=== PATIENT | male | born 1975 | race Caucasian/White ===

== ENCOUNTER 2024-08-05 14:48 | Outpatient (CLI) | payer OTHER, SELFPAY ==
--- NOTE | ~2024-08-05 | MR_ITS ---
EXAMINATION: MR brain/brain stem wo/w con DATE: 08/05/2024 15:43 INDICATION: Benign neoplasm of pituitary gland TECHNIQUE: Magnetic resonance imaging (MRI) of the brain and brainstem was performed without and with 19 mL Multihance intravenous contrast. Whole-brain sequences included sagittal T1-weighted FSE, axia l diffusion-weighted FS EPI, axial T2*-weighted GRE, axial T2-weighted FLAIR Propeller, and axial T2- weighted Propeller. Small [id number] sequences included sagittal and coronal T1-weighted FSE cente red at the pituitary. Postcontrast sequences included small [id number] coronal T1-weighted FSE in a time course and sagittal T1-weighted FSE and whole-brain axial T1-weighted FSE. Apparent diffusion coefficient (ADC) maps were created. COMPARISON: None. FINDINGS: There are no areas of restricted diffusion to suggest acute infarction. No intracranial hemorrhage or abnormal intracranial mass lesion. The pituitary appears normal in size and appearance with homogene ous enhancement throughout the dynamic phase postcontrast imaging and with a midline pituitary stalk. No discrete pituitary lesion identified. There are no intraparenchymal signal abnormalities seen on the other pulse sequences. The ventricles are symmetric and normal in size. There are no abnormal ext ra-axial fluid collections. Flow voids are seen in the cerebral arteries on the T2-weighted sequences consistent with their expected patency. Mucosal thickening and nonenhancing mucus in the bilateral s phenoid sinuses which demonstrates thickened sclerotic ayala consistent with chronic sinusitis. Addit ional mucosal thickening and large amount of and mucus in the right frontal sinus. Additional mild mu cosal thickening in the bilateral maxillary and ethmoid sinuses.. Visualized orbits and soft tissues are unremarkable. There are no areas of abnormal enhancement on the post contrast images. IMPRESSION: 1. Normal-appearing pituitary. 2. Prominent sinus disease including prominent mucous in the right frontal and bilateral sphenoid sin uses, the latter with thickened sclerotic ayala consistent with chronic sinusitis. 3. Normal brain. No acute intracranial process. Reviewed, dictated and finalized at location B. IMPRESSION: 1. Normal-appearing pituitary. 2. Prominent sinus disease including prominent mucous in the right frontal and bilateral sphenoid sinuses, the latter with thickened sclerotic ayala consisten t with chronic sinusitis. 3. Normal brain. No acute intracranial process.
== END 2024-08-05 14:49 | disposition home or self-care (01) ==
LOC: MICIMG 14:49
DX: R79.89 Other specified abnormal findings of blood chemistry (principal); R89.1 Abnormal level of hormones in specimens from other organs, systems and tissues; D35.2 Benign neoplasm of pituitary gland
CPT/HCPCS: 70553; A9577